=== PATIENT | female | born 1960 | race Hispanic/Latino ===

== ENCOUNTER 2018-11-22 06:26 | Day surgery (SDC) | payer MEDICAID ==
[2018-11-22] MEDS ORDERED: NACL 0.9% 1000 ML 1,000 ML IV SCH (07:00)
[2018-11-22] MEDS ORDERED: VERSED ONE (09:11)
[2018-11-22] MEDS ORDERED: WATER FOR IRRIG STERILE IR ONE (09:12)
[2018-11-22] MEDS ORDERED: DIPRIVAN 10 MG/ML IV ONE (09:12)
--- NOTE | 2018-11-22 09:32 | Anesthesia Day of Surgery ---
Anesthesia Day of Surgery - Day of Surgery Patient Examined: Yes Patient H&P Reviewed: Yes Patient is NPO: Yes Beta Blockers: No
--- NOTE | 2018-11-22 09:33 | Anesthesia Consultation ---
Anesthesia Consult and Med Hx Date of service: 11/22/18 - Airway Anesthetic Teeth Evaluation: Good ROM Head & Neck: Adequate Mental/Hyoid Distance: Adequate Mallampati Class: Class I Intubation Access Assessment: Probably Good - Pulmonary Exam CTA: Yes - Cardiac Exam Cardiac Exam: No Murmur - Pre-Operative Health Status ASA Pre-Surgery Classification: ASA2 Proposed Anesthetic Plan: MAC - Pulmonary SOB: Yes Hx Sleep Apnea: Yes
--- NOTE | 2018-11-22 09:41 | Operative Report ---
PREOPERATIVE DIAGNOSIS: Morbid obesity. POSTOPERATIVE DIAGNOSES: Small hiatal hernia, bilious reflux. PROCEDURE: EGD. COMPLICATIONS: None. BLEEDING: None. SPECIMENS: None. INDICATIONS: The patient is a 57-year-old female with a history of morbid obesity. She is here for preoperative EGD. Informed consent was obtained. DESCRIPTION OF PROCEDURE: The patient was brought to the procedure room where she was placed in the left lateral decubitus position, underwent MAC anesthesia. Bite block was placed and a timeout was called. Adult gastroscope was inserted into the oropharynx, down the esophagus, into the first portion of the duodenum. She was noted to have bilious reflux up to the level of the mid stomach. On retroflexion view, she was noted to have a small hiatal hernia type 1 sliding. With this, the air was desufflated. The gastroscope was removed. The patient tolerated the procedure well and was transferred to the PACU in stable condition. JOB# [id number] LENARD/ANA LILIA
[2018-11-22 10:58] VITALS: BP 133/90
== END 2018-11-22 06:27 | disposition home or self-care (01) ==
LOC: GIO 06:26
PROVIDERS: ATTEND Specialist
DX: K21.9 Gastro-esophageal reflux disease without esophagitis (principal); K30 Functional dyspepsia; E66.01 Morbid (severe) obesity due to excess calories; K44.9 Diaphragmatic hernia without obstruction or gangrene; G47.30 Sleep apnea, unspecified; Z90.49 Acquired absence of other specified parts of digestive tract; Z98.890 Other specified postprocedural states; Z79.899 Other long term (current) drug therapy; Z87.891 Personal history of nicotine dependence; Z98.891 History of uterine scar from previous surgery; Z68.42 Body mass index [BMI] 45.0-49.9, adult
CPT/HCPCS: 43235; J2250; J2704; J7030

== ENCOUNTER 2019-01-03 06:07 | Observation (INO) | payer MEDICAID ==
[~2019-01-03 06:07] MED LIST: ANCEF/STERILE WATER 2 GM/20 ML 2 GM/20 ML SYRINGE IV NR; APRESOLINE IV PRN; FLAGYL 500 MG/100 ML 500 MG/100 ML BAG IV NR; LOVENOX SUB-Q NR; MORPHINE IV PRN; NORCO PO PRN; ZOFRAN IV PRN
[2019-01-03] MEDS ORDERED: TRANSDERM-SCOP TD SCH (07:00)
[2019-01-03] MEDS ORDERED: FLAGYL 500 MG/100 ML 500 MG/100 ML BAG IV NR (07:00)
[2019-01-03] MEDS ORDERED: MARCAINE 0.5% INFILTRATI ONE (07:02)
[2019-01-03] MEDS ORDERED: XYLOCAINE 1% 20 mL ONE (07:02)
[2019-01-03] MEDS ORDERED: MARCAINE-EPI 0.5%-1:200,000 INFILTRATI ONE (07:02)
--- NOTE | 2019-01-03 07:22 | Anesthesia Day of Surgery ---
Anesthesia Day of Surgery - Day of Surgery Patient Examined: Yes Patient H&P Reviewed: Yes Patient is NPO: Yes
--- NOTE | 2019-01-03 07:22 | Anesthesia Consultation ---
Anesthesia Consult and Med Hx Date of service: 01/03/19 - Airway Anesthetic Teeth Evaluation: Good (some missing teeth on the bottom), Dentures (upper) ROM Head & Neck: Adequate Mental/Hyoid Distance: Adequate Mallampati Class: Class III Intubation Access Assessment: Possibly Difficult - Pre-Operative Health Status ASA Pre-Surgery Classification: ASA3 Proposed Anesthetic Plan: General - Pulmonary Hx Smoking: (SINCE AGE 19; QUIT 2004) SOB: Yes Hx Sleep Apnea: Yes - Central Nervous System Hx Back Pain: Yes (right knee pain) Hx Psychiatric Problems: No - Other Systems Hx Alcohol Use: No Hx Substance Use: No Hx Obesity: Yes (Morbid obesity BMI 46.3)
[2019-01-03] MEDS ORDERED: ZEMURON IV ONE (07:23)
[2019-01-03] MEDS ORDERED: XYLOCAINE MPF 2% ONE (07:23)
[2019-01-03] MEDS ORDERED: QUELICIN ONE (07:23)
[2019-01-03] MEDS ORDERED: SUBLIMAZE ONE (07:24)
[2019-01-03] MEDS ORDERED: DIPRIVAN 10 MG/ML IV ONE (07:25)
[2019-01-03] MEDS ORDERED: VERSED IV NR (08:00)
[2019-01-03] MEDS ORDERED: NEURONTIN PO NR (08:00)
[2019-01-03] MEDS: LACTATED RINGERS 1,000 ML IV SCH ×3 (08:00→22:36)
[2019-01-03] MEDS ORDERED: PEPCID IV NR (08:00)
[2019-01-03] MEDS ORDERED: SUBLIMAZE IV PRN (08:15)
[2019-01-03] MEDS ORDERED: XYLOCAINE 1% 20 mL INFILTRATI ONE (09:15)
[2019-01-03] MEDS ORDERED: MARCAINE-EPI/PF 0.5%-1:200,000 INFILTRATI ONE (09:15)
[2019-01-03] MEDS ORDERED: DILAUDID ONE (09:17)
[2019-01-03] MEDS ORDERED: DECADRON ONE (09:26)
[2019-01-03] MEDS ORDERED: BLOXIVERZ ONE (09:26)
[2019-01-03] MEDS ORDERED: ZOFRAN ONE (09:26)
[2019-01-03] MEDS ORDERED: ROBINUL ONE (09:26)
[2019-01-03] MEDS: DILAUDID IV PRN ×3 (10:31→22:34)
[2019-01-03] MEDS: MYLICON PO PRN ×2 (12:23→22:47)
--- NOTE | 2019-01-03 13:33 | Post Anesthesia Evaluation ---
- Post Anesthesia Evaluation Patient Participated: Yes Airway Patent: Yes Stable Respiratory Function: Yes Nausea/Vomiting: No Temp > 96.8F: Yes Pain Manageable: Yes Adequeate Hydration: Yes Anesthesia Complications: No
[2019-01-03] MEDS ORDERED: REGLAN ONE (14:49)
[2019-01-03] MEDS: REGLAN IV PRN ×2 (14:51→22:35)
[2019-01-03] MEDS ORDERED: NEURONTIN PO SCH (18:00)
[2019-01-03] MEDS: DITROPAN PO SCH (21:21)
[2019-01-04] MEDS: DILAUDID IV PRN (04:59)
[2019-01-04] MEDS: REGLAN IV PRN (04:59)
--- NOTE | 2019-01-04 06:20 | Discharge Summary ---
Providers - Providers Date of Admission: 01/03/19 10:00 Date of discharge: 01/04/19 Attending physician: MARIANA SIERRA Primary care physician: ELIDIA ALEJANDRO Hospitalization Reason for admission: postop Condition: Good Procedures: 01/03/19: Laparoscopic sleeve gastrectomy Hospital course: 58F admitted after her operation for routine postop care. No acute events. She did well, tolerated CLD, ambulated, and was dc home in am. Disposition: DC-01 TO HOME OR SELFCARE Core Measure Documentation - Palliative Care Palliative Care/ Comfort Measures: Not Applicable - Core Measures Any of the following diagnoses?: none - VTE Discharge Requirements Deep Vein Thrombosis/Pulmonary Embolism Present on Admission: No - Acute CO Discharge Requirements Aspirin at discharge: No Reason for no aspirin on DC: Surgical contraindication - Heart Failure Discharge Requirements HANNAH/ARB for LVSD if EF <40%: Not Applicable - Stroke Discharge Requirements Statin for LDL = or >70 mg/dl on DC: Not Applicable Exam - Physical Exam Narrative exam: Gen: AAO, NAD Heart: RRR Lungs: CTAB Abd: Soft, NT, ND. Bandages c/d/i. - Constitutional Vitals: Temp Pulse Resp BP Pulse Ox 97.4 F L 80 17 108/60 93 01/04/19 04:33 01/04/19 04:33 01/04/19 04:33 01/04/19 04:33 01/04/19 04:33 Plan Diet: clear liquids Wound: keep clean and dry Special Instructions: no heavy lifting Additional Instructions: Richard Sierra as scheduled Follow up with: ELIDIA ALEJANDRO MD [Primary Care Provider] - 7 Days
[2019-01-04 07:15] LABS: Bilirubin,Urine NEG (Negative); Blood,Urine NEG (Negative); Color,Urine Yellow (Yellow); Mucus,Urine 1+ /HPF; Protein,Urine <15 mg/dL mg/dL (Negative); RBC,Urine < 1.0 /HPF (0.0-6.0); Urobilinogen,Urine < 2.0 mg/dL (<2.0)
[2019-01-04] MEDS: DITROPAN PO SCH (09:55)
[2019-01-04 10:19] VITALS: BP 110/56
[2019-01-04 11:18] LABS: Hematocrit 40.5 % (30.3-42.9); Hemoglobin 13.5 gm/dl (10.1-14.3); Mean Corpuscular HGB Conc 34 % (30-34); Mean Corpuscular Volume 86 fl (79-97); Red Blood Count 4.69 M/mm3 (3.65-5.03); Red Cell Distribution Width 14.3 % (13.2-15.2)
[2019-01-04 11:21] LABS: BUN/Creatinine Ratio 23; Blood Urea Nitrogen 9 mg/dL (7-17); Hemolysis Index 15
[2019-01-04 11:59] LABS: Platelet Count 267 K/mm3 (140-440)
[2019-01-04 12:00] LABS: Basophils # (Auto) 0.1 K/mm3 (0.0-0.1); Eosinophils % (Auto) 0.1 % (0.0-4.3); Lymphocytes # (Auto) 4.1 K/mm3 (1.2-5.4); Lymphocytes % (Auto) 27.1 % (13.4-35.0); Monocytes # (Auto) 0.9 K/mm3 (0.0-0.8); Monocytes % (Auto) 6.3 % (0.0-7.3)
[2019-01-04] MEDS ORDERED: LOVENOX SUB-Q SCH (14:00)
== END 2019-01-04 12:45 | disposition home or self-care (01) ==
LOC: OR 06:07 → 3A 10:00 → EDSTATUS 14:45 → 3B-SURG 17:26
PROVIDERS: ADMIT Specialist; ATTEND Specialist
DX: E66.01 Morbid (severe) obesity due to excess calories (principal); K44.9 Diaphragmatic hernia without obstruction or gangrene; K21.9 Gastro-esophageal reflux disease without esophagitis; R06.02 Shortness of breath; K30 Functional dyspepsia; N39.3 Stress incontinence (female) (male); Z90.49 Acquired absence of other specified parts of digestive tract; Z98.890 Other specified postprocedural states
CPT/HCPCS: 36415; 43280; 43775; 80048; 81001; 85025; 88307; 96372; 96374; 96375; 96376; G0378; J0330; J0690; J1100; J1170; J1650; J2250; J2405; J2704; J2710; J2765; J3010; J7120